=== PATIENT | male | born 1985 | race African-American/Black ===

== ENCOUNTER 2017-09-11 23:31 | Emergency (ER) | payer OTHER ==
[~2017-09-11] VITALS: Ht 182.9 cm; Wt 127.0 kg
[2017-09-11 23:47] VITALS: BP 133/76
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
--- NOTE | 2017-09-12 01:04 | RADIOLOGY REPORT ---
EXAMINATION: XR FOOT, LEFT CLINICAL INFORMATION: Blunt trauma at the left first metatarsal. Tenderness. COMPARISON: None TECHNIQUE: AP, lateral, and oblique views of the left foot. FINDINGS: No fracture or dislocation. Alignment is anatomic. Joint spaces are maintained. The soft tissues are unremarkable. IMPRESSION: Normal left foot radiographs.
--- NOTE | 2017-09-12 01:05 | RADIOLOGY REPORT ---
EXAMINATION: XR LUMBOSACRAL SPINE CLINICAL INFORMATION: Lower back pain COMPARISON: None TECHNIQUE: 4 views of the lumbosacral spine were obtained. FINDINGS: Slight levoscoliosis. No fracture or subluxation. Vertebral bodies and posterior elements are anatomically aligned. Vertebral body heights and intervertebral disc spaces are maintained. The sacroiliac joints are intact. The sacrum appears intact. The bowel gas pattern is unremarkable. IMPRESSION: Slight levoscoliosis. Otherwise unremarkable study.
[2017-09-12] MEDS ORDERED: BACLOFEN10 M1 PO (01:15)
[2017-09-12] MEDS ORDERED: IBUPROFEN600 M1 PO (01:15)
[2017-09-12] MEDS ORDERED: BENADRYL ALLERG25 M2 PO (01:17)
[2017-09-12] MEDS ORDERED: RISPERDAL4 M1 PO (01:17)
== END 2017-09-12 01:26 ==
LOC: ERH 23:31
DX: M67.472 Ganglion, left ankle and foot (principal); M54.5 Low back pain
CPT/HCPCS: 72110; 73630-LT

== ENCOUNTER 2017-12-30 13:01 | Emergency (ER) | payer OTHER ==
[~2017-12-30 13:01] MED LIST: AMOXICILLIN875 M1 PO; BACLOFEN10 M1 PO; BENADRYL ALLERG25 M2 PO; IBUPROFEN600 M1 PO; RISPERDAL4 M1 PO
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
[2017-12-30] MEDS ORDERED: IBUPROFEN800 M1 PO (14:25)
[2017-12-30] MEDS ORDERED: CYCLOBENZAPRINE10 M1 PO (14:26)
[2017-12-30 14:36] VITALS: BP 115/68
[2017-12-30] MEDS ORDERED: RISPERDAL4 M1 PO (15:01)
[2018-04-09] MEDS ORDERED: NORCO 5-325 TA1 EACH PO (17:00)
== END 2017-12-30 15:29 ==
LOC: ERH 13:01
DX: M54.5 Low back pain (principal)

== ENCOUNTER 2018-04-05 02:06 | Emergency (ER) | payer OTHER ==
[~2018-04-05] VITALS: Ht 172.7 cm; Wt 104.3 kg
[~2018-04-05 02:06] MED LIST changes: +CYCLOBENZAPRINE10 M1 PO; +IBUPROFEN800 M1 PO
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
[2018-04-05] MEDS ORDERED: BACTRIM DS TAB1 EACH PO (04:15)
[2018-04-05] MEDS ORDERED: KEFLEX750 M1 PO (04:15)
[2018-04-05 04:20] VITALS: BP 126/82
[2018-04-05] MEDS ORDERED: PERCOCET 5-3251 EACH PO (21:37)
[2018-04-09] MEDS ORDERED: NORCO 5-325 TA1 EACH PO (17:00)
== END 2018-04-05 04:28 ==
LOC: ERH 02:06
DX: L02.414 Cutaneous abscess of left upper limb (principal); L03.114 Cellulitis of left upper limb
CPT/HCPCS: 96374; 96375; J1885

== ENCOUNTER 2018-04-05 19:36 | Emergency (ER) | payer OTHER ==
[~2018-04-05] VITALS: Ht 172.7 cm; Wt 117.9 kg
[~2018-04-05 19:36] MED LIST changes: +BACTRIM DS TAB1 EACH PO; +KEFLEX750 M1 PO
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
[2018-04-05] MEDS ORDERED: PERCOCET 5-3251 EACH PO (21:37)
[2018-04-05 21:42] VITALS: BP 122/84
[2018-04-09] MEDS ORDERED: NORCO 5-325 TA1 EACH PO (17:00)
== END 2018-04-05 21:43 ==
LOC: ERH 19:36
DX: L02.414 Cutaneous abscess of left upper limb (principal); L03.114 Cellulitis of left upper limb
CPT/HCPCS: 96374; 96375; J1885